=== PATIENT | male | born 1980 | race Caucasian/White ===

== ENCOUNTER 2016-07-07 18:44 | Emergency (ER) | payer OTHER ==
--- NOTE | ~2016-07-07 | CR141 ---
[facility] A Service of [facility] RADIOLOGY TEXT RESULTS PATIENT: ABDULAZIZ BENÍTEZ JR LOCATION: SED : 78 UNIT #: [id number] AGE: [address]: Basilia Romeor APRN SEX: M ORDER DR: [id number] [address] [address] [id number] E MR#: [id number] Acc #: [id number] NAME: ABDULAZIZ BENÍTEZ JR : 1980 SEX: M STUDY DATE/TIME: 07/07/2016 18:19 UNIT: SED ROOM: STUDY DESCRIPTION: CR Hand Min 3 Views Lt Attending Physician: Basilia Romero A.P.R.N. Ordering Physician: Basilia Romero A.P.R.N. Primary Care Physician: No Primary Care Physician MEDICAL IMAGING REPORT This report is preliminary unless electronic signature is present. EXAM Left hand series. DATE OF EXAM 07/07/2016 HISTORY Pinky laceration today. FINDINGS AP, lateral and oblique radiographs of the left fifth digit are presented. Technologist has placed a radiopaque marker at level of the reported laceration. No traumatic fracture or malalignment. The joint spaces are intact. Soft tissue laceration radial aspect of the fifth digit at level of the distal shaft/head of the proximal phalanx. Laceration plane appears to measure approximately 3-4 cm. It does not appear to extend to the underlying bone surface. I see no associated radiodense foreign body. Remainder of soft tissues unremarkable. Remainder of visualized bony structures unremarkable. Dictated by... John Fernández M.D. THIS IS AN ELECTRONICALLY VERIFIED REPORT John Fernández M.D. at 07/08/2016 10:54 PM STERLING/aye TD: 07/07/2016 19:36 JOB #: [id number] [facility] A Service of [facility] RADIOLOGY TEXT RESULTS PATIENT: ABDULAZIZ BENÍTEZ JR LOCATION: SED : 78 UNIT #: [id number] AGE: [address]: Basilia Romero APRN SEX: M ORDER DR: MEDICAL IMAGING REPORT Page 1 of 1
[~2016-07-07 18:44] MED LIST: ABILIFY10 MG PO; ACYCLOVIR PO; ALLERGY MED; ATIVAN PO; ATIVAN0.5 MG PO; BACTRIM DS TABL1 TA1 PO; CIPRO PO; CIPROFLOXACIN500 M1 PO; FLOMAX0.4 M1 PO; FLOMAX0.4 MG PO; IBUPROFEN PO; KLONOPIN PO; KLONOPIN1 MG PO; LORTAB 5/500 TA1 TA1 PO; NO MEDICATIONS; NORCO1 TAB 10/3 PO; PERCOCET5/325 PO; PHENERGAN25 MG PO; PROZAC10 MG PO; PROZAC40 MG PO; TORADOL10 MG PO; TYLOX 5-500 CA1 EACH PO; ULTRAM PO; VICODIN 5/1 TAB 5/50 PO; VICODIN 5/500 T1 TAB PO; VISTARIL PO; VOLTAREN75 MG PO; ZANTAC
== END 2016-07-07 20:06 | disposition home or self-care (01) ==
LOC: SED 18:44
DX: S61.217A Laceration without foreign body of left little finger without damage to nail, initial encounter (principal); F17.200 Nicotine dependence, unspecified, uncomplicated; Z88.8 Allergy status to other drugs, medicaments and biological substances; X58.XXXA Exposure to other specified factors, initial encounter; Y92.009 Unspecified place in unspecified non-institutional (private) residence as the place of occurrence of the external cause
CPT/HCPCS: 12001; 73130; 99283